=== PATIENT | female | born 1940 | race Caucasian/White ===

== ENCOUNTER 2020-01-10 06:04 | Inpatient (IN) | payer OTHER ==
[~2020-01-10] VITALS: Ht 157.5 cm; Wt 61.2 kg
[2020-01-10] MEDS ORDERED: ESTAZOLAM1 MG (06:24)
[2020-01-10] MEDS ORDERED: SYNTHROID88 MCG (06:24)
--- NOTE | 2020-01-10 06:24 | NUR ---
PACIENTE ALERTA REFIERE POR REFERIDO MEDICO CON RESULTADO SPARA DRA. ELIZABETH MARISCAL .
--- NOTE | 2020-01-10 07:56 | NUR ---
PACIENTE FEMINA ALERA Y ORIENTADA EN COMPANIA DE FAMILIAR. SE RE ORIENTA SOBRE EL TRATAMIENTO ORDENADO POR EL MEDICO LA MISMA REFIERE ENTENDER. BAJO MEDIDAS ASEPTICAS SE CANALIZA , SE NAVEED MUESTRAS DE LABRATORIO. ORDENES TOMADAS POR RN: CORINNE Y EJECUTADAS POR RN: NIKOLE.
[2020-01-13] MEDS ORDERED: METRONIDAZOLE500 MG PO (12:30)
[2020-01-13] MEDS ORDERED: CIPRO500 MG PO (12:30)
[2020-01-13] MEDS ORDERED: INTESTINEX680 M1 PO (12:31)
== END 2020-01-13 13:24 | disposition home or self-care (01) | DRG 394 ==
LOC: ER 06:04 → SURH 10:40
PROVIDERS: ADMIT Surgery; ATTEND Surgery
PROC: 0DBN8ZX Excision of Sigmoid Colon, Via Natural or Artificial Opening Endoscopic, Diagnostic (ICD-10-PCS; principal; 2020-01-10)
DX: T18.5XXA Foreign body in anus and rectum, initial encounter (principal); K61.1 Rectal abscess; K62.5 Hemorrhage of anus and rectum; K57.32 Diverticulitis of large intestine without perforation or abscess without bleeding; K62.89 Other specified diseases of anus and rectum; E03.8 Other specified hypothyroidism; Z20.828 Contact with and (suspected) exposure to other viral communicable diseases

== ENCOUNTER 2020-04-10 10:45 | Inpatient (IN) | payer OTHER ==
[~2020-04-10] VITALS: Ht 157.5 cm; Wt 59.0 kg
[~2020-04-10 10:45] MED LIST: CIPRO500 MG PO; ESTAZOLAM1 MG; INTESTINEX680 M1 PO; METRONIDAZOLE500 MG PO; SYNTHROID88 MCG
[2020-04-17] MEDS ORDERED: HUMULIN 70100 UNIT/2 SUBCUTANEO (10:35)
[2020-04-17] MEDS ORDERED: ZOLOFT50 MG PO (13:20)
[2020-04-27] MEDS ORDERED: PRILOSEC OTC20 MG PO (09:26)
[2020-04-27] MEDS ORDERED: PERCOCET 5-3251 EACH PO (09:26)
== END 2020-04-27 10:56 | disposition home or self-care (01) | DRG 331 ==
LOC: O/R 04-24 06:15 → SURH 04-24 06:15
PROVIDERS: ADMIT Surgery; ATTEND Surgery
PROC: 0DJD8ZZ Inspection of Lower Intestinal Tract, Via Natural or Artificial Opening Endoscopic (ICD-10-PCS; 2020-04-24)
PROC: 0DTN4ZZ Resection of Sigmoid Colon, Percutaneous Endoscopic Approach (ICD-10-PCS; principal; 2020-04-24 11:15)
DX: K57.32 Diverticulitis of large intestine without perforation or abscess without bleeding (principal); E11.65 Type 2 diabetes mellitus with hyperglycemia; E03.8 Other specified hypothyroidism